=== PATIENT | female | born 1965 | race Hispanic/Latino ===

== ENCOUNTER 2024-09-13 13:06 | Emergency (ER) | payer OTHER ==
--- NOTE | 2024-09-13 14:02 | RAD REPORT ---
EXAMINATION: XR RIGHT SHOUDLER CLINICAL INDICATION: Female, 59 years old. PAIN RIGHT TECHNIQUE: Multiple views of the right shoulder were obtained. COMPARISON: No prior exam. FINDINGS: Subcapital fracture is present of the surgical neck proximal right humerus with mild impact ion. No dislocation is seen.
--- NOTE | 2024-09-13 14:07 | RAD REPORT ---
EXAM: XR LEFT HAND HISTORY: Pain. PAIN COMPARISON: 04/06/2023 TECHNIQUE: Multiple projections of the left hand submitted. FINDINGS: Advanced arthritic changes is present involving the radiocarpal and intercarpal joints with ankylosis and complete joint space loss. Advanced degenerative change also seen first carpal metacarpal joint as well as the metacarpophalangeal joint of the first digit. Multi joint dislocation noted with ulnar deviation involving the third through fifth MCP joints. No acute fracture seen.
[2024-09-13] MEDS ORDERED: HYDROCODONE/APAP 7.5/325 MG TAB ONE (14:40)
--- NOTE | 2024-09-13 14:44 | EDPHYS ---
Physician Documentation [facility] Name: Bailey Jesus Age: 59 yrs Sex: Female : 1965 Arrival Date: 09/13/2024 Time: 13:06 Bed 25 Private MD: ED Physician Ricki Early HPI: 09/13 13:33 This 59 yrs old Female presents to ER via EMS with complaints of Fall Injury. kb 13:33 Pt is a 59 year old female who presents for right shoulder pain after tripping over a water hose and falling to the ground. Tried to catch herself with left hand so she has a small abrasion to left little finger with pain as well. Denies any other pain or injury. Denies loc. . Historical: - Allergies: 13:21 No Known Allergies; kc6 - PMHx: 13:21 Arthritis; Diabetes mellitus; kc6 - PSHx: 13:21 section; kc6 - Immunization history:: Adult Immunizations up to date. - Infectious Disease History:: Denies. - Social history:: Smoking status: Patient denies any tobacco usage or history of. ROS: 13:33 Constitutional: As per HPI kb Exam: 13:33 Constitutional: This is a well developed, well nourished patient who is awake, alert, kb and in no acute distress. Head/Face: Normocephalic, atraumatic. ENT: Moist Mucous membranes Cardiovascular: Regular rate Respiratory: Respirations even and unlabored. No increased work of breathing. Talking in full sentences Neuro: Awake and alert, GCS 15, oriented to person, place, time, and situation. 13:33 Musculoskeletal/extremity: Extremities: grossly normal except: noted in the anterior aspect of right shoulder and posterior aspect of right shoulder: decreased ROM, pain, tenderness, noted in the dorsal aspect of proximal phalanx of left little finger: abrasion, pain, ROM: limited active range of motion, Circulation is intact in all extremities. Sensation intact. Vital Signs: 13:19 BP 110 / 83; Pulse 73; Resp 18 S; Temp 97.5(O); Pulse Ox 95% on R/A; Weight 63.05 kg kc6 (R); Height 5 ft. 1 in. (R); Pain 10/10; 15:30 BP 83 / 45; Pulse 49; Resp 16; Pulse Ox 96% ; me1 16:30 BP 96 / 52; Pulse 60; Resp 18; Pulse Ox 100% ; me1 17:20 BP 92 / 47; Pulse 65; Resp 16; Pulse Ox 98% ; me1 18:00 BP 101 / 66; Pulse 79; Resp 17; Temp 98.4; Pulse Ox 100% ; rs5 13:19 Body Mass Index 26.26 (63.05 kg, 154.94 cm) kc6 13:19 Pain Scale: Adult kc6 MDM: 13:22 Medical Screening Exam initiated kb 13:35 Data reviewed: vital signs, nurses notes. Historians other than the Patient: EMS: [facility]. 14:51 Differential diagnosis: Fracture, contusion, strain, sprain. Counseling: I had a kb detailed discussion with the patient and/or guardian regarding the historical points, exam findings, and any diagnostic results supporting the discharge/admit diagnosis, radiology results, the need for outpatient follow up, a orthopedic surgeon, to return to the emergency department if symptoms worsen or persist or if there are any questions or concerns that arise at home. ED course: Patient is a 59-year-old female who tripped and fell just prior to arrival landing on her right shoulder. Complains of pain to right shoulder and left hand. On exam patient has small abrasion to left fifth digit, pain and tenderness with decreased range of motion to right shoulder. X-rays completed. Shoulder x-ray reveals fracture. Discussed findings with patient and family as well as need for orthopedic follow-up. Verbal understanding received.. 14:53 Independent interpretation of the following test(s) in the Emergency Department X-Ray: kb My interpretation is Proximal humerus fracture. 15:41 ED course: Pt had vagal response with movement of shoulder for sling application. Pt kb moved into a room and onto a stretcher. zofran and IV fluids ordered. . 09/13 16:44 Order name: Glucose, Ancillary Testing; Complete Time: 16:52 EDMS 09/13 13:22 Order name: Shoulder Right (2 View) XRAY; Complete Time: 14:03 kb 09/13 13:22 Order name: Hand Left 3 View XRAY; Complete Time: 14:30 kb 09/13 14:05 Order name: Sling; Complete Time: 15:32 kb 09/13 15:41 Order name: IV Start; Complete Time: 16:01 kb 09/13 16:23 Order name: Vital Signs; Complete Time: 16:54 kb Administered Medications: 14:42 Drug: Hydrocodone-Acetaminophen PO (7.5 mg-325 mg) 1 tabs PO once Route: PO; rs5 15:30 Follow up: Response: Nausea aa5 15:32 Drug: Ondansetron IVP 4 mg IVP once; over 2 minutes Route: IVP; Site: right hand; aa5 15:37 Follow up: IV infiltrated upon administration of Zofran IVP. aa5 15:37 Drug: Ondansetron PO 4 mg PO once Route: PO; aa5 15:47 Follow up: Response: No adverse reaction me1 16:01 Drug: NS 0.9% IV 1000 ml IV at 1000 ml once; to be given as a bolus over 60 minutes me1 Route: IV; Rate: 1000 ml; Site: left antecubital; 18:12 Follow up: Response: No adverse reaction; IV Status: Completed infusion; IV Intake: me1 1000ml Disposition Summary: 09/13/24 14:44 Discharge Ordered Notes: Location: Home kb Condition: Stable kb Diagnosis - Subcapital fracture of the surgical neck proximal right humerus kb Followup: kb - With: Emergency Department - When: As needed - Reason: Worsening of condition Followup: kb - With: Private Physician - When: 2 - 3 days - Reason: Recheck today's complaints, Continuance of care, Re-evaluation by your physician Discharge Instructions: - Discharge Summary Sheet kb - Humerus Fracture Treated With Immobilization, [id number] kb - Humerus Fracture Treated With ORIF, Care After kb Forms: - Medication Reconciliation Form kb - Antibiotic Education kb - Prescription Opioid Use kb - Patient Portal Instructions kb - Leadership Thank You Letter kb Prescriptions: - Tramadol 50 mg Oral Tablet - take 1 tablet ORAL route every 8 hours as needed; 12 tablet; Refills: 0, kb Product Selection Permitted Signatures: Dispatcher [employer] Omayra Coello FNP-C FNP-Ckb Calderon, Audri RN RN aa5 Jayda Johnson RN RN kc6 Jai Jane RN RN rs5 Kay Vizcaino RN RN me1 Corrections: (The following items were deleted from the chart) 13:23 13:23 Hand Left 3 View+RAD.RAD.BRZ ordered. EDMS EDMS
--- NOTE | 2024-09-13 14:44 | ER ---
Nurse's Notes [facility] Name: Bailey Jesus Age: 59 yrs Sex: Female : 1965 Arrival Date: 09/13/2024 Time: 13:06 Bed 25 Private MD: Diagnosis: Subcapital fracture of the surgical neck proximal right humerus Presentation: 09/13 13:19 Chief complaint: EMS states: pt tripped and fell over a garden hose and hit her right kc6 shoulder. denies LOC or taking blood thinners. Coronavirus screen: At this time, the client does not indicate any symptoms associated with coronavirus-19. Ebola Screen: No symptoms or risks identified at this time. Initial Sepsis Screen: Does the patient meet any 2 criteria? No. Patient's initial sepsis screen is negative. Does the patient have a suspected source of infection? No. Patient's initial sepsis screen is negative. Risk Assessment: Do you want to hurt yourself or someone else? Patient reports no desire to harm self or others. Onset of symptoms was September 13, 2024. Care prior to arrival: Medication(s) given: Fentanyl 50mcg IV initiated. 22 GA, in the left hand. 13:19 Method Of Arrival: EMS: [facility] 13:19 Acuity: NAZ 4 kc6 Triage Assessment: 15:30 General: Appears in no apparent distress. well groomed, well developed, well nourished, me1 Behavior is calm, cooperative, appropriate for age. Pain: Complains of pain in posterior aspect of right shoulder. EENT: No deficits noted. Neuro: Level of Consciousness is awake, alert, obeys commands, Oriented to person, place, time, situation, Appropriate for age. Cardiovascular: Patient's skin is warm and dry. Respiratory: Airway is patent Trachea midline Respiratory effort is even, unlabored, Respiratory pattern is regular, symmetrical. Historical: - Allergies: 13:21 No Known Allergies; kc6 - PMHx: 13:21 Arthritis; Diabetes mellitus; kc6 - PSHx: 13:21 section; kc6 - Immunization history:: Adult Immunizations up to date. - Infectious Disease History:: Denies. - Social history:: Smoking status: Patient denies any tobacco usage or history of. Screenin:40 [facility] ED Fall Risk Assessment (Adult) History of falling in the last 3 months, kc6 including since admission Yes- single mechanical fall (1 pt) Confusion or Disorientation No (0 pts) Intoxicated or Sedated No (0 pts) Impaired Gait No (0 pts) Mobility Assist Device Used No (0 pt) Altered Elimination No (0 pt) Score/Fall Risk Level 0 - 2 = Low Risk Oriented to surroundings, Maintained a safe environment. Abuse screen: Denies threats or abuse. Denies injuries from another. Nutritional screening: No deficits noted. Tuberculosis screening: No symptoms or risk factors identified. Assessment: 13:22 General: Appears in no apparent distress. uncomfortable, Behavior is calm, cooperative. rs5 Pain: Complains of pain in right shoulder Pain currently is 8 out of 10 on a pain scale. Quality of pain is described as aching, Is continuous. Neuro: Level of Consciousness is awake, alert, obeys commands, Oriented to person, place. 13:22 Cardiovascular: Patient's skin is warm and dry. Respiratory: Airway is patent rs5 Respiratory effort is even, unlabored, Respiratory pattern is regular, symmetrical. GI: Abdomen is round non-distended, Abd is soft and non tender X 4 quads. : No signs and/or symptoms were reported regarding the genitourinary system. EENT: No signs and/or symptoms were reported regarding the EENT system. Derm: Skin is intact, Skin is pink, warm \T\ dry. Musculoskeletal: Range of motion: limited in right arm. 14:33 Reassessment: Patient and/or family updated on plan of care and expected duration. Pain rs5 level reassessed. Patient is alert, oriented x 3, equal unlabored respirations, skin warm/dry/pink. 15:38 Reassessment: pt reports feeling like she is going to pass out during application of kc6 shoulder immobilizer. pt appears to be pale and diaphoretic in the wheelchair with son by her side. charge entry and provider made aware. pt moved to ER bed 25 and placed on the monitor. report given to EDITH Villanueva. Vital Signs: 13:19 BP 110 / 83; Pulse 73; Resp 18 S; Temp 97.5(O); Pulse Ox 95% on R/A; Weight 63.05 kg kc6 (R); Height 5 ft. 1 in. (R); Pain 10/10; 15:30 BP 83 / 45; Pulse 49; Resp 16; Pulse Ox 96% ; me1 16:30 BP 96 / 52; Pulse 60; Resp 18; Pulse Ox 100% ; me1 17:20 BP 92 / 47; Pulse 65; Resp 16; Pulse Ox 98% ; me1 18:00 BP 101 / 66; Pulse 79; Resp 17; Temp 98.4; Pulse Ox 100% ; rs5 13:19 Body Mass Index 26.26 (63.05 kg, 154.94 cm) kc6 13:19 Pain Scale: Adult kc6 ED Course: 13:08 Patient arrived in ED. mr 13:21 Triage completed. kc6 13:21 Arm band placed on. kc6 13:22 Omayra Gonzalez FNP-C is PHCP. kb 13:22 Ricki Early MD is Attending Physician. kb 13:54 Shoulder Right (2 View) XRAY In Process Unspecified. EDMS 13:54 Hand Left 3 View XRAY In Process Unspecified. EDMS 14:35 Jai Jane, EDITH is Primary Nurse. rs5 15:38 Clavicle/Shoulder strap applied on right clavicle/shoulder. kc6 15:40 Patient has correct armband on for positive identification. Bed in low position. Call kc6 light in reach. Side rails up X2. Adult w/ patient. Pulse ox on. NIBP on. Door closed. Noise minimized. Lights dimmed. Pillow given. 15:40 Patient maintains SpO2 saturation greater than 95% on room air. kc6 16:01 Inserted saline lock: 24 gauge in left antecubital area, using aseptic technique. kc6 Flushed with 10 mL NS. 17:00 Provided Education on: POC. Verbalized understanding.. me1 18:26 No provider procedures requiring assistance completed. IV discontinued, intact, me1 bleeding controlled, No redness/swelling at site. Pressure dressing applied. Administered Medications: 14:42 Drug: Hydrocodone-Acetaminophen PO (7.5 mg-325 mg) 1 tabs PO once Route: PO; rs5 15:30 Follow up: Response: Nausea aa5 15:32 Drug: Ondansetron IVP 4 mg IVP once; over 2 minutes Route: IVP; Site: right hand; aa5 15:37 Follow up: IV infiltrated upon administration of Zofran IVP. aa5 15:37 Drug: Ondansetron PO 4 mg PO once Route: PO; aa5 15:47 Follow up: Response: No adverse reaction me1 16:01 Drug: NS 0.9% IV 1000 ml IV at 1000 ml once; to be given as a bolus over 60 minutes me1 Route: IV; Rate: 1000 ml; Site: left antecubital; 18:12 Follow up: Response: No adverse reaction; IV Status: Completed infusion; IV Intake: me1 1000ml Medication: 18:28 VIS not applicable for this client. me1 Intake: 18:12 IV: 1000ml; Total: 1000ml. me1 Outcome: 14:44 Discharge ordered by MD. garber 18:26 Discharged to home via wheelchair, with family, me1 18:26 Condition: stable 18:26 Discharge instructions given to patient, family, Instructed on discharge instructions, follow up and referral plans. medication usage, Demonstrated understanding of instructions, follow-up care, medications, Prescriptions given X 1, 18:28 Patient left the ED. me1 Signatures: Dispatcher [employer] EDMS Omayra Gonzalez, TEST SPECIALIST-C TEST SPECIALIST-CkBrandy Jacome, Reg Reg mr RicoMaude, RN RN aa5 Jayda Johnson RN RN kc6 Jai Jane, EDITH RN rs5 Kay Vizcaino RN RN me1 Corrections: (The following items were deleted from the chart) 19:01 18:00 BP 95 / 52; Pulse 79bpm; Resp 17bpm; Pulse Ox 100%; Temp 98.4F; me1 rs5
[2024-09-13] MEDS ORDERED: ONDANSETRON 4 MG (ODT) TAB ONE (15:30)
[2024-09-13] MEDS ORDERED: ONDANSETRON 4 MG/2 ML VIAL ONE (15:30)
[2024-09-13] MEDS ORDERED: NA CHLORIDE 0.9% 1,000 ML ONE (15:48)
[2024-09-14 00:26] VITALS: BP 95/52; TEMP 98.4; O2SAT 100
== END 2024-09-13 18:28 | disposition home or self-care (01) ==
LOC: ER 13:06
DX: S42.211A Unspecified displaced fracture of surgical neck of right humerus, initial encounter for closed fracture (principal); W01.0XXA Fall on same level from slipping, tripping and stumbling without subsequent striking against object, initial encounter
CPT/HCPCS: 96361; 82947; 73130; 73030; 96374; 99285; Q0162; J2405; J7030